=== PATIENT | male | born 1940 | race American Indian/Alaskan Native ===

== ENCOUNTER 2018-11-01 08:52 | Emergency (ER) | payer MEDICARE ==
[2018-11-01 09:01] VITALS: TEMP 99; O2SAT 96
--- NOTE | 2018-11-01 09:22 | C.PDOC ---
History Of Present Illness 78 y/o male with hx cardiac stents (20 yrs ago) and htn c/o cough with chills, body aches, pleuritic chest pain, for the last week with subjective fevers. pt has been given mucinex (not mucomist) and ibuprofen with mild relief. pt quit smoking 3 months ago. unclear if pt received flu vaccine. HPI: Influenza Time Seen by Provider: 11/01/18 09:08 Chief Complaint: Flu-like Symptoms History Per: Patient, Family Exam Limitations: no limitations Onset/Duration Of Symptoms: Days (7) Symptoms include: fever (subjective), bodyaches, sore throat, cough. denies: vomiting, diarrhea, chest pain Sick Contacts (Context): None Hx Influenza Vaccination: No Risk factors for flu complications: Yes: adult > 65 years, heart disease Past Medical History Reviewed: Historical Data, Nursing Documentation, Vital Signs Vital Signs: Last Vital Signs Temp 99 F 11/01/18 08:57 Pulse 78 11/01/18 08:57 Resp 20 11/01/18 08:57 BP 164/70 H 11/01/18 08:57 Pulse Ox 96 11/01/18 08:57 Primary Care Provider: Apolinar Corcoran - Medical History PMH: CAD (stents), HTN Surgical History: Coronary Stent Family History: States: Unknown Family Hx - Social History Hx Tobacco Use: Yes (quit Jul 2018) Hx Alcohol Use: No Hx Substance Use: No - Immunization History Hx Tetanus Toxoid Vaccination: No Hx Influenza Vaccination: No Hx Pneumococcal Vaccination: Yes Review Of Systems Constitutional: Positive for: Fever (subjective), Chills, Malaise ENT: Positive for: Throat Pain. Negative for: Ear Pain Cardiovascular: Negative for: Chest Pain, Palpitations Respiratory: Positive for: Cough, Shortness of Breath, Pleuritic Pain, Sputum. Negative for: Wheezing Gastrointestinal: Negative for: Vomiting, Abdominal Pain, Diarrhea Skin: Negative for: Rash Neurological: Negative for: Weakness, Numbness Physical Exam - Physical Exam Appears: Non-toxic, No Acute Distress, Chronically Ill (elderly frail appearing male) Skin: Warm, Dry Head: Atraumatic, Normacephalic Ear(s): Bilateral: Normal Nose: No Discharge Oral Mucosa: Dry Tongue: Other (pasty appearing) Throat: Erythema, Exudate Neck: Supple Lymphatic: No Adenopathy Chest: No Deformity, No Tenderness Cardiovascular: Rhythm Regular Respiratory: No Accessory Muscle Use, Rales, Rhonchi (bilateral bases), No Wheezing Gastrointestinal/Abdominal: Bowel Sounds, Soft, No Tenderness, No Distention, No Rebound Extremity: Normal ROM, No Pedal Edema, No Calf Tenderness Pulses: Left Dorsalis Pedis: Normal, Right Dorsalis Pedis: Normal Neurological/Psych: Oriented x3, Normal Speech, Normal Cognition Medical Decision Making Medical Decision Making: pt with cough, body aches, subjective fever x 1 week, with sore throat; eval for flu, strep throat, pneumonia 1106 pt with normal wbc, neg strep, neg flu, cxr neg for infiltrate. will d/c home with amoxicillin, pt has appt with Dr Corcoran this Sat. - Laboratory Results Result Diagrams: 11/01/18 09:45 11/01/18 10:16 - ECG O2 Sat by Pulse Oximetry: 96 Pulse Ox Interpretation: Normal - Radiology X-Ray: Viewed By Me, Read By Radiologist X-Ray Interpretation: Other (No infiltrate. Pulmonary hyperinflation. Small pleural effusion bilaterally versus chronic pleural thickening.) Disposition Counseled Patient/Family Regarding: Studies Performed, Diagnosis, Need For Followup, Rx Given - Disposition Referrals: Apolinar Corcoran MD [Staff Provider] - Disposition: HOME/ ROUTINE Disposition Time: 11:07 Condition: GOOD Additional Instructions: Drink increased fluids. Take Tylenol or Motrin for body aches. Take antibiotics as prescribed. Follow up with Dr Corcoran on Sat as already scheduled. Return to ER for any worse symptoms. Use 2 puffs of inhaler every 6 hours if coughing. Prescriptions: Acetaminophen [Tylenol 325mg tab] 650 mg PO Q4 #50 tab Albuterol HFA [Ventolin HFA 90 mcg/actuation (8 g)] 2 puff IH Q6 #1 inhaler Amoxicillin [Amoxil 500 mg Cap] 500 mg PO BID #20 cap Instructions: Acute Bronchitis, Adult (DC), Sore Throat, Adult (DC) Forms: [facility] (Irish), General Discharge Instructions - Clinical Impression Clinical Impression: Bronchitis, Pharyngitis
[2018-11-01] MEDS ORDERED: Sodium Chloride 0.9% Inh Soln (3mL) UD INH ONE (09:24)
[2018-11-01 09:49] LABS: BASO # 0.1 K/uL (0.0-0.2); BASO % 1.4 % (0.0-2.0); EOS # 0.3 K/uL (0.0-0.7); EOS % 3.4 % (0.0-4.0); HEMOGLOBIN 13.8 g/dL (12.0-18.0); LYMPH # 1.3 K/uL (1.0-4.3); LYMPH % 17.5 % (20.0-40.0); MEAN CELL VOLUME 90.8 fL (80.0-94.0); MEAN CORPUSCULAR HEMOGLOBIN 30.6 pg (27.0-31.0); MEAN CORPUSCULAR HGB CONC 33.7 g/dL (33.0-37.0); MEAN PLATELET VOLUME 8.8 fL (7.2-11.7); MONO # 0.7 K/uL (0.0-0.8); MONO % 9.1 % (0.0-10.0); NEUT # 5.3 K/uL (1.8-7.0); NEUT % 68.6 % (50.0-75.0); NRBC % 0.1 % (0.0-2.0); RBC 4.5 Mil/uL (4.40-5.90); RED CELL DISTRIBUTION WIDTH 17.3 % (11.5-14.5); WHITE BLOOD COUNT 7.7 K/uL (4.8-10.8)
--- NOTE | 2018-11-01 10:18 | RAD ---
Date of service: 11/01/2018 HISTORY: SOB COMPARISON: No prior. TECHNIQUE: Chest PA and lateral views. Two views. FINDINGS: LUNGS: No infiltrate. Pulmonary hyperinflation possibly reflecting pulmonary emphysema. PLEURA: Minimal blunting of both costophrenic angles may reflect small pleural effusion or chronic pleural thickening. CARDIOVASCULAR: There is atherosclerotic calcification of the thoracic aorta. Normal cardiac size. No pulmonary vascular congestion. OSSEOUS STRUCTURES: No significant abnormalities. VISUALIZED UPPER ABDOMEN: Normal. OTHER FINDINGS: None. IMPRESSION: No infiltrate. Pulmonary hyperinflation. Small pleural effusion bilaterally versus chronic pleural thickening.
[2018-11-01 10:34] LABS: ALB/GLOB RATIO 1.5 (1.0-2.1); ALBUMIN 4.1 g/dL (3.5-5.0); CALCIUM 9.2 mg/dl (8.6-10.4)
[2018-11-01 11:22] VITALS: BP 159/84; PULSE 87; RESP 18
== END 2018-11-01 11:31 | disposition home or self-care (01) ==
LOC: C.ER 08:52
DX: J40 Bronchitis, not specified as acute or chronic (principal); J02.9 Acute pharyngitis, unspecified